=== PATIENT | female | born 1960 | race Caucasian/White ===

== ENCOUNTER → 2017-12-30 | Outpatient (CLI) | payer OTHER | END | disposition home or self-care (01) | LOC: CFH 12:52 | PROVIDERS: ATTEND Nurse Practitioner Family | DX: Z12.31 Encounter for screening mammogram for malignant neoplasm of breast (principal); Z13.820 Encounter for screening for osteoporosis; R92.1 Mammographic calcification found on diagnostic imaging of breast; Z78.0 Asymptomatic menopausal state | CPT/HCPCS: 77080; 77067 ==

== ENCOUNTER → 2020-03-04 | Outpatient (CLI) | payer OTHER | END | disposition home or self-care (01) | LOC: CFH 14:51 | PROVIDERS: ATTEND Family Medicine | DX: R92.8 Other abnormal and inconclusive findings on diagnostic imaging of breast (principal) | CPT/HCPCS: 77065 ==

== ENCOUNTER 2020-03-06 10:47 | Outpatient (CLI) | payer OTHER ==
[2020-03-06] MEDS ORDERED: SODIUM BICARBONATE 4.0%, 5ML ONE (15:19)
[2020-03-06] MEDS ORDERED: LIDOCAINE 1%, 20ML ONE (15:19)
[2020-03-06] MEDS ORDERED: LIDOCAINE 1%-EPI 1:100K, 20ML ONE (15:19)
== END 2020-03-06 23:59 | disposition home or self-care (01) ==
LOC: CFH 10:47
PROVIDERS: ATTEND Family Medicine
DX: R92.0 Mammographic microcalcification found on diagnostic imaging of breast (principal); D05.12 Intraductal carcinoma in situ of left breast
CPT/HCPCS: 19081; 77065; 88305; J3490

== ENCOUNTER 2020-05-21 13:15 | Observation (INO) | payer OTHER ==
[~2020-05-21] VITALS: Ht 157.5 cm; Wt 55.7 kg
[~2020-05-21 13:15] MED LIST: ESCI10TA PO
[2020-05-21] MEDS ORDERED: CEFAZOLIN 1,000 MG ONE ×2 (13:27→14:50)
[2020-05-21] MEDS ORDERED: GENTAMICIN 80 MG/2 ML ONE (13:27)
[2020-05-21] MEDS ORDERED: BUPIVACAINE/PF 0.5% ONE (13:27)
[2020-05-21] MEDS ORDERED: ISOSULFAN BLUE 10 MG/ML, 5ML IV ONE (13:27)
[2020-05-21] MEDS ORDERED: EPINEPHRINE 1 MG/ML, 1ML ONE (13:28)
[2020-05-21] MEDS ORDERED: BACITRACIN 50,000 UNIT ONE (13:28)
[2020-05-21] MEDS ORDERED: CHLORHEXIDINE 15 ML UDC ONE (13:50)
[2020-05-21] MEDS ORDERED: CHLORHEXIDINE 15 ML UDC MM ONE (14:00)
[2020-05-21] MEDS ORDERED: LACTATED RINGERS 1,000 ML IV SCH (14:00)
[2020-05-21] MEDS ORDERED: FENTANYL PF 250 MCG/5ML ONE (14:46)
[2020-05-21] MEDS ORDERED: MIDAZOLAM 1 MG/ML, 2ML ONE (14:46)
[2020-05-21] MEDS ORDERED: GLYCOPYRROLATE 0.2MG/1ML, 5ML ONE (14:50)
[2020-05-21] MEDS ORDERED: DEXAMETHASONE 4 MG/ML, 1ML ONE (14:50)
[2020-05-21] MEDS ORDERED: ROCURONIUM 10MG/ML,5ML ONE (14:50)
[2020-05-21] MEDS ORDERED: ONDANSETRON 2MG/ML, 2ML ONE (14:50)
[2020-05-21] MEDS ORDERED: NEOSTIGMINE 1 MG/ML, 10ML ONE (14:50)
[2020-05-21] MEDS ORDERED: PROPOFOL 10 MG/ML, 20ML ONE (14:50)
[2020-05-21] MEDS ORDERED: morphine SULFATE 10 MG/ML, 1ML IVPush PRN (15:30)
[2020-05-21] MEDS ORDERED: HALOPERIDOL 5 MG/ML IV PRN ×2 (15:30→18:00)
[2020-05-21] MEDS ORDERED: LABETALOL 5MG/ML, 20ML IV PRN (15:30)
[2020-05-21] MEDS ORDERED: FENTANYL PF 100 MCG/2ML IV PRN (15:30)
[2020-05-21] MEDS ORDERED: HYDROmorphone 1 MG/ML, 1ML INJ IVPush PRN (15:30)
[2020-05-21] MEDS ORDERED: hydrALAzine 20 MG/ML, 1ML IV PRN (15:30)
[2020-05-21] MEDS ORDERED: OXYcodone 5 MG/5 ML ORAL.SOL UDC PO PRN (15:30)
[2020-05-21] MEDS ORDERED: MEPERIDINE/PF 25MG/0.5ML IVPush PRN (15:30)
[2020-05-21] MEDS ORDERED: ACETAMINOPHEN 325 MG TABLET PO PRN ×2 (15:30→18:00)
[2020-05-21] MEDS ORDERED: PROMETHAZINE 25 MG/ML, 1ML IVPush PRN (15:30)
[2020-05-21] MEDS ORDERED: PROPOFOL 50 ML ONE (15:45)
[2020-05-21] MEDS ORDERED: PROMETHAZINE 25 MG/ML, 1ML ONE (17:41)
[2020-05-21] MEDS ORDERED: MEPERIDINE/PF 25MG/ML,1ML ONE (17:41)
[2020-05-21] MEDS ORDERED: OXYcodone 5 MG/5 ML ORAL.SOL UDC ONE (17:41)
[2020-05-21] MEDS: OXYcodone 5 MG/5 ML ORAL.SOL UDC PO PRN ×2 (18:13→19:05)
[2020-05-21] MEDS ORDERED: ONDANSETRON 2MG/ML, 2ML IV PRN (21:00)
[2020-05-21] MEDS ORDERED: MORPHINE SULFATE 4 MG/ML, 1ML IV PRN (21:00)
[2020-05-21] MEDS ORDERED: ONDANSETRON 4 MG TABLET PO PRN (21:00)
[2020-05-21] MEDS: LACTATED RINGERS 1,000 ML IV SCH (21:00)
[2020-05-21] MEDS ORDERED: LORazepam 2 MG/ML, 1ML IV PRN (21:00)
[2020-05-22] MEDS: CEFAZOLIN PMX 1GM/50ML 50 ML IV SCH ×2 (00:55→09:00)
[2020-05-22 02:58] VITALS: BP 129/73
[2020-05-22] MEDS: HYDROcodone/APAP 5/325 TABLET PO PRN ×2 (06:28→10:39)
[2020-05-22] MEDS: LACTATED RINGERS 1,000 ML IV SCH (07:00)
== END 2020-05-22 11:10 | disposition home or self-care (01) ==
LOC: OUT 13:15 → 4NE 19:45 → OUT 23:18 → DCLOUNGE 05-22 11:00
PROVIDERS: ADMIT Surgery; ATTEND Surgery
DX: D05.12 Intraductal carcinoma in situ of left breast (principal); F41.8 Other specified anxiety disorders; Z90.12 Acquired absence of left breast and nipple; Z91.040 Latex allergy status; Z79.899 Other long term (current) drug therapy
CPT/HCPCS: 19303; 19340; 38525; 38900; 88307; 88341; 88342; 88360; 96365; 96366; C1729; C1762; C1789; G0378; J0171; J0690; J1100; J1580; J2175; J2250; J2405; J2550; J2704; J2710; J3010; J7120; S0020

== ENCOUNTER 2021-04-03 12:27 | Day surgery (SDC) | payer OTHER ==
[2021-03-31 11:35] VITALS: BP 123/70
[2021-03-31 12:50] LABS: BASOPHILS % (AUTO) 1 % (0-1); EOSINOPHILS % (AUTO) 2 % (1-7); LYMPHOCYTES % (AUTO) 36 % (22-44); MEAN CORPUSCULAR HEMOGLOBIN 31.5 pg (27.0-34.8); MEAN CORPUSCULAR HGB CONC 33.5 g/dL (32.4-35.8); MEAN PLATELET VOLUME 9.2 fL (7.4-10.4); MONOCYTES % (AUTO) 6 % (2-9); NEUTROPHILS % (AUTO) 55 % (42-75); PLATELET COUNT 256 x10^3/uL (130-400); RED CELL DISTRIBUTION WIDTH 13.4 % (9.6-15.2)
[~2021-04-03] VITALS: Ht 157.5 cm; Wt 55.5 kg
[~2021-04-03 12:27] MED LIST changes: +CALC-126 PO; +CHOL10003 PO; -ESCI10TA PO; +ESCI10TA97 PO; +Vitamin B12 SL
[2021-04-03 12:35] VITALS: BP 123/70
[2021-04-03] MEDS ORDERED: CHLORHEXIDINE 15 ML UDC ONE (12:49)
[2021-04-03] MEDS ORDERED: CHLORHEXIDINE 15 ML UDC PO ONE (13:00)
[2021-04-03] MEDS ORDERED: LACTATED RINGERS 1,000 ML IV SCH (13:00)
[2021-04-03] MEDS ORDERED: MIDAZOLAM 1 MG/ML, 2ML ONE (14:04)
[2021-04-03] MEDS ORDERED: FENTANYL PF 250 MCG/5ML ONE (14:04)
[2021-04-03] MEDS ORDERED: MINERAL OIL 10 ML VIAL MC ONE (14:12)
[2021-04-03] MEDS ORDERED: BUPIVACAINE/PF 0.5% ONE (14:12)
[2021-04-03] MEDS ORDERED: CEFAZOLIN 1,000 MG ONE (14:12)
[2021-04-03] MEDS ORDERED: GENTAMICIN 80 MG/2 ML ONE (14:12)
[2021-04-03] MEDS ORDERED: EPINEPHRINE 1 MG/ML, 1ML ONE (14:12)
[2021-04-03] MEDS ORDERED: PROPOFOL 50 ML ONE (15:03)
[2021-04-03] MEDS ORDERED: HYDROmorphone 2 MG/ML, 1ML IVPush PRN (16:30)
[2021-04-03] MEDS ORDERED: ONDANSETRON 2MG/ML, 2ML IVPush PRN (16:30)
[2021-04-03] MEDS ORDERED: METHOCARBAMOL 1,000 MG in DEXTROSE 5% 100 ML IV PRN (16:30)
[2021-04-03] MEDS ORDERED: PROMETHAZINE 25 MG/ML, 1ML IVPush PRN (16:30)
[2021-04-03] MEDS ORDERED: FENTANYL PF 100 MCG/2ML IV PRN (16:30)
[2021-04-03] MEDS ORDERED: hydrALAzine 20 MG/ML, 1ML IV PRN (16:30)
[2021-04-03] MEDS ORDERED: MEPERIDINE/PF 25MG/0.5ML IVPush PRN (16:30)
[2021-04-03] MEDS ORDERED: LABETALOL 5MG/ML, 20ML IV PRN (16:30)
[2021-04-03] MEDS ORDERED: EPHEDRINE 50 MG/ML, 1ML IM PRN (16:30)
[2021-04-03] MEDS ORDERED: EPHEDRINE 50 MG/ML, 1ML IVPush PRN (16:30)
[2021-04-03] MEDS ORDERED: OXYcodone 5 MG/5 ML ORAL.SOL UDC PO PRN (16:30)
[2021-04-03] MEDS ORDERED: ACETAMINOPHEN 325 MG TABLET PO PRN (16:30)
[2021-04-03] MEDS ORDERED: LORazepam 2 MG/ML, 1ML IVPush PRN (16:30)
== END 2021-04-03 17:40 | disposition home or self-care (01) ==
LOC: OUT 12:27
PROVIDERS: ATTEND Plastic Surgery
DX: N65.0 Deformity of reconstructed breast (principal); N65.1 Disproportion of reconstructed breast; L90.5 Scar conditions and fibrosis of skin; F41.9 Anxiety disorder, unspecified; F32.9 Major depressive disorder, single episode, unspecified; Z20.822 Contact with and (suspected) exposure to COVID-19; Z79.899 Other long term (current) drug therapy; Z85.3 Personal history of malignant neoplasm of breast; Z90.12 Acquired absence of left breast and nipple; Z88.8 Allergy status to other drugs, medicaments and biological substances; Z91.040 Latex allergy status; Z82.49 Family history of ischemic heart disease and other diseases of the circulatory system; Z83.3 Family history of diabetes mellitus
CPT/HCPCS: 14301; 19350; 36415; 85025; 93005; C1729; J0171; J0690; J1580; J2250; J2704; J3010; J7120; U0003; U0005